=== PATIENT | male | born 1950 | race Caucasian/White ===

== ENCOUNTER 2022-04-28 17:19 | Inpatient (IN) | payer MEDICARE, MEDICAID ==
[~2022-04-28] VITALS: Ht 185.4 cm; Wt 95.3 kg
[2022-04-28] VITALS (9 sets, daily range): BP systolic 95–129; BP diastolic 69–83
[~2022-04-28 17:19] MED LIST: ETOMIDATE 2MG/ML 10ML VIAL IV ONE; SODIUM CHLORIDE 0.9% 10ML VIAL ONE; VECURONIUM BROMIDE 10 MG/VIAL IV ONE
[2022-04-28] MEDS ORDERED: SODIUM CHLORIDE 0.9% 1000ML BAG (SEPSIS BOLUS) IV ONE (17:45)
[2022-04-28] MEDS ORDERED: PIPERACILLIN/TAZ 3.375G PREMIX 50 ML IV ONE (17:45)
[2022-04-28] MEDS ORDERED: VANCOMYCIN 1G PREMIX 200 ML IV ONE (17:45)
[2022-04-28] MEDS ORDERED: ACETAMINOPHEN 650MG SUPP PR ONE (17:45)
[2022-04-28] MEDS ORDERED: ETOMIDATE 2MG/ML 10ML VIAL IV ONE (18:00)
[2022-04-28] MEDS ORDERED: MIDAZOLAM HCL 2 MG/2 ML VIAL IV ONE (18:00)
[2022-04-28] MEDS ORDERED: VECURONIUM BROMIDE 10 MG/VIAL IV ONE (18:00)
[2022-04-28] MEDS ORDERED: MIDAZOLAM HCL 50 MG in DEXTROSE 5% WATER 40 ML IV ONE (18:00)
[2022-04-28 18:04] LABS: BG BASE EXCESS -7.9 mmol/L (-2.0-2.0); BG CARBOXYHEMOGLOBIN 0.1 % (0.5-1.5); BG DEOXYHEMOGLOBIN 0.4 % (0.0-5.0); BG FRACTION INSPIRED OXYGEN 100; BG HCO3 ACT 17.9 mmol/L (22.0-26.0); BG METHEMOGLOBIN 0.7 % (0.0-1.5); BG OXYGEN SATURATION 99.6 % (92.0-98.5); BG OXYHEMOGLOBIN 98.8 % (94.0-97.0); BG PH 7.292 (7.350-7.450); BG PO2 441.9 mmHg (75.0-100.0); BG TOTAL HEMOGLOBIN 13.6 g/dL (12.0-18.0); BG VENT MODE VENT - AC
[2022-04-28 18:07] LABS: BASOPHILS % 0.6 % (0.0-2.0); EOSINOPHILS % 0.5 % (0.0-5.0); HEMATOCRIT. 40.9 % (42.0-52.0); HEMOGLOBIN. 13.9 g/dL (14.0-18.0); LYMPHOCYTES % 18.1 % (20.0-50.0); MEAN CORPUSCULAR HEMOGLOBIN 33.9 pg (28.0-32.0); MEAN CORPUSCULAR VOLUME 99.3 fL (80.0-94.0); MEAN PLATELET VOLUME 7.7 fl (7.4-10.4); MONOCYTES % 3.9 % (2.0-8.0); NEUTROPHILS % 76.9 % (40.0-76.0); PLATELET 259 x1000/uL (130-400); RED BLOOD CELL COUNT 4.12 mill/uL (4.7-6.1); RED CELL DISTRIBUTION WIDTH 14.4 % (11.6-14.6)
[2022-04-28 18:13] LABS: PROTHROMBIN TIME 10.9 sec (9.6-11.0)
[2022-04-28 18:21] LABS: CHLORIDE 117 mEq/L (98-107)
[2022-04-28] MEDS ORDERED: MIDAZOLAM HCL 100 MG in SODIUM CHLORIDE 0.9% 80 ML IV NR (18:30)
[2022-04-28 18:35] LABS: CREATINE KINASE 428 IU/L (39-308); ETHANOL BLOOD 18 mg/dL; T4 FREE 0.88 ng/dL (0.76-1.46)
[2022-04-28 18:37] LABS: CLARITY URINE CLOUDY (CLEAR); COLOR URINE DARK YELLOW (YELLOW); KETONES URINE 1+ (NEGATIVE); LEUKOCYTE ESTERASE URINE NEGATIVE (NEGATIVE); NITRITE URINE NEGATIVE (NEGATIVE); OCCULT BLOOD URINE 3+ (NEGATIVE); PROTEIN URINE 2+ (NEGATIVE); SPECIFIC GRAVITY URINE 1.021 (1.005-1.030)
[2022-04-28 18:58] LABS: *AMPHETAMINES SCREEN URINE NEGATIVE (NEGATIVE); *BARBITURATES SCREEN URINE NEGATIVE (NEGATIVE); *BENZODIAZEPINES SCREEN URINE NEGATIVE (NEGATIVE); *COCAINE SCREEN URINE NEGATIVE (NEGATIVE); CANNABINOID URINE SCREEN NEGATIVE (NEGATIVE); METHADONE URINE SCREEN NEGATIVE (NEGATIVE); OPIATES URINE SCREEN NEGATIVE (NEGATIVE); PHENCYCLIDINE URINE SCREEN NEGATIVE (NEGATIVE)
[2022-04-28] MEDS ORDERED: IPRATROPIUM BROMIDE (0.02%) 0.5MG/2.5ML NEB HHN PRN (19:15)
[2022-04-28] MEDS ORDERED: IPRATROPIUM BROMIDE (0.02%) 0.5MG/2.5ML NEB HHN SCH (19:15)
[2022-04-28] MEDS: PROPOFOL 10MG/ML 100ML 100 ML IV PRN (20:28)
[2022-04-28] MEDS ORDERED: NOREPINEPHRINE 8 MG in DEXT 5% WATER 242 ML IV PRN ×3 (20:30→23:45)
[2022-04-28] MEDS ORDERED: ACETAMINOPHEN 325MG TABLET PO PRN (20:30)
[2022-04-28] MEDS ORDERED: NA PHOS,M-B/NA PHOS,DI-BA ENEMA 118ML PR PRN (20:30)
[2022-04-28] MEDS ORDERED: DOCUSATE SODIUM 100MG CAPSULE PO PRN (20:30)
[2022-04-28] MEDS ORDERED: MAGNESIUM/ALUMINUM HYDROXIDE/SIMETHICONE 30ML UDC PO PRN (20:30)
[2022-04-28] MEDS ORDERED: ONDANSETRON HCL 4MG/2ML INJ IV PRN (20:30)
[2022-04-28] MEDS ORDERED: IPRATROPIUM/ALBUTEROL 0.5-3(2.5)MG/3ML NEB NEB PRN (20:30)
[2022-04-28] MEDS ORDERED: CLONIDINE 0.1MG TABLET PO PRN (20:30)
[2022-04-28 20:31] LABS: BG BASE EXCESS -6.9 mmol/L (-2.0-2.0); BG CARBOXYHEMOGLOBIN 0.3 % (0.5-1.5); BG DEOXYHEMOGLOBIN 0.9 % (0.0-5.0); BG FRACTION INSPIRED OXYGEN 100; BG HCO3 ACT 18.2 mmol/L (22.0-26.0); BG METHEMOGLOBIN 0.5 % (0.0-1.5); BG OXYGEN SATURATION 99.1 % (92.0-98.5); BG OXYHEMOGLOBIN 98.3 % (94.0-97.0); BG PCO2 35.2 mmHg (35.0-45.0); BG PH 7.331 (7.350-7.450); BG PO2 246.9 mmHg (75.0-100.0); BG SAMPLE SITE RIGHT RADIAL; BG TOTAL HEMOGLOBIN 13.9 g/dL (12.0-18.0); BG VENT MODE VENT - AC
[2022-04-28 21:23] LABS: T4 FREE 0.89 ng/dL (0.76-1.46)
[2022-04-28] MEDS ORDERED: PHENYLEPHRINE 100 MG in DEXT 5% WATER 240 ML IV PRN (21:30)
[2022-04-28] MEDS ORDERED: DEXT 5%/0.45% NACL 1000ML 1,000 ML IV SCH (21:30)
[2022-04-28] MEDS ORDERED: PIPERACILLIN/TAZ 3.375G PREMIX 50 ML IV SCH (23:00)
[2022-04-29] VITALS (31 sets, daily range): BP systolic 84–133; BP diastolic 60–83
[2022-04-29] MEDS ORDERED: MIDAZOLAM HCL 100 MG in DEXT 5% WATER 80 ML IV PRN (00:15)
[2022-04-29] MEDS: DEXT 5%/LACTATED RINGERS 1,000 ML IV SCH ×2 (00:23→13:04)
[2022-04-29] MEDS: PANTOPRAZOLE SODIUM 40 MG/VIAL IV SCH ×2 (00:23→09:00)
[2022-04-29] MEDS: IPRATROPIUM/ALBUTEROL 0.5-3(2.5)MG/3ML NEB HHN SCH ×5 (00:50→20:32)
[2022-04-29 01:22] LABS: CREATINE KINASE MB FRACTION 13.2 ng/mL (0.5-3.6)
[2022-04-29] MEDS ORDERED: VANCOMYCIN 750MG PREMIX 150 ML IV SCH (07:00)
[2022-04-29 11:44] LABS: BASOPHILS % 0.7 % (0.0-2.0); HEMATOCRIT. 39.9 % (42.0-52.0); HEMOGLOBIN. 13.3 g/dL (14.0-18.0); LYMPHOCYTES % 12.8 % (20.0-50.0); MEAN CORPUSCULAR HEMOGLOBIN 33.6 pg (28.0-32.0); MEAN CORPUSCULAR VOLUME 101.1 fL (80.0-94.0); MEAN PLATELET VOLUME 8.4 fl (7.4-10.4); NEUTROPHILS % 75.5 % (40.0-76.0); PLATELET 131 x1000/uL (130-400); RED BLOOD CELL COUNT 3.94 mill/uL (4.7-6.1); RED CELL DISTRIBUTION WIDTH 15.3 % (11.6-14.6)
[2022-04-29 11:52] LABS: BG BASE EXCESS -1.7 mmol/L (-2.0-2.0); BG CARBOXYHEMOGLOBIN 0.3 % (0.5-1.5); BG DEOXYHEMOGLOBIN 0.6 % (0.0-5.0); BG FRACTION INSPIRED OXYGEN 100; BG HCO3 ACT 20.7 mmol/L (22.0-26.0); BG METHEMOGLOBIN 0.4 % (0.0-1.5); BG OXYGEN SATURATION 99.4 % (92.0-98.5); BG OXYHEMOGLOBIN 98.7 % (94.0-97.0); BG PH 7.472 (7.350-7.450); BG PO2 429.7 mmHg (75.0-100.0); BG SAMPLE SITE RIGHT RADIAL; BG TOTAL HEMOGLOBIN 13.3 g/dL (12.0-18.0); BG VENT MODE VENT - AC
[2022-04-29 11:58] LABS: CHLORIDE 118 mEq/L (98-107)
[2022-04-29 12:21] LABS: CREATINE KINASE MB FRACTION 11.8 ng/mL (0.5-3.6); PHOSPHORUS 3.5 mg/dL (2.5-4.9)
[2022-04-29] MEDS: ENOXAPARIN 40MG/0.4ML SYR SUBCUT SCH (13:01)
[2022-04-29] MEDS ORDERED: PROPOFOL 10MG/ML 100ML 100 ML IV PRN (13:30)
[2022-04-29 13:51] LABS: CREATINE KINASE 6383 IU/L (39-308)
[2022-04-29] MEDS: PROPOFOL 10MG/ML 100ML 100 ML IV PRN (14:28)
[2022-04-29] MEDS: VANCOMYCIN 750MG PREMIX 150 ML IV SCH (16:42)
[2022-04-29] MEDS: PIPERACILLIN/TAZ 3.375G PREMIX 50 ML IV SCH (21:53)
[2022-04-30] VITALS (58 sets, daily range): BP systolic 89–141; BP diastolic 59–82
[2022-04-30] MEDS: IPRATROPIUM/ALBUTEROL 0.5-3(2.5)MG/3ML NEB HHN SCH ×6 (00:19→20:23)
[2022-04-30] MEDS: DEXT 5%/LACTATED RINGERS 1,000 ML IV SCH ×3 (01:33→21:39)
[2022-04-30] MEDS: PIPERACILLIN/TAZ 3.375G PREMIX 50 ML IV SCH ×2 (05:54→13:29)
[2022-04-30] MEDS: VANCOMYCIN 750MG PREMIX 150 ML IV SCH ×2 (05:55→17:40)
[2022-04-30 08:29] LABS: BG BASE EXCESS 0.4 mmol/L (-2.0-2.0); BG CARBOXYHEMOGLOBIN 0.1 % (0.5-1.5); BG FRACTION INSPIRED OXYGEN 40; BG HCO3 ACT 24.6 mmol/L (22.0-26.0); BG METHEMOGLOBIN 0.3 % (0.0-1.5); BG OXYHEMOGLOBIN 98.6 % (94.0-97.0); BG PCO2 38.4 mmHg (35.0-45.0); BG PH 7.425 (7.350-7.450); BG PO2 182.7 mmHg (75.0-100.0); BG SAMPLE SITE RIGHT RADIAL; BG TOTAL HEMOGLOBIN 13.1 g/dL (12.0-18.0); BG VENT MODE VENT - AC
[2022-04-30] MEDS: PANTOPRAZOLE SODIUM 40 MG/VIAL IV SCH (08:43)
[2022-04-30] MEDS: ENOXAPARIN 40MG/0.4ML SYR SUBCUT SCH (08:47)
[2022-04-30] MEDS: THIAMINE HCL 100MG TABLET PO SCH (11:50)
[2022-04-30] MEDS: CHLORDIAZEPOXIDE 25MG CAPSULE PO SCH ×2 (13:30→21:40)
[2022-04-30] MEDS: PIPERACILLIN/TAZOBACTAM 3.375G in DEXT 5% WATER 50ML IV SCH (21:39)
[2022-04-30] MEDS: ACETAMINOPHEN 325MG TABLET PO PRN (21:40)
[2022-04-30] MEDS: PROPOFOL 10MG/ML 100ML 100 ML IV PRN (23:05)
[2022-05-01] VITALS (96 sets, daily range): BP systolic 83–135; BP diastolic 45–81
[2022-05-01] MEDS: IPRATROPIUM/ALBUTEROL 0.5-3(2.5)MG/3ML NEB HHN SCH ×6 (00:20→20:14)
[2022-05-01] MEDS: PROPOFOL 10MG/ML 100ML 100 ML IV PRN ×6 (03:14→21:56)
[2022-05-01 03:27] LABS: CHLORIDE 115 mEq/L (98-107)
[2022-05-01] MEDS: VANCOMYCIN 750MG PREMIX 150 ML IV SCH (05:26)
[2022-05-01] MEDS: PIPERACILLIN/TAZOBACTAM 3.375G in DEXT 5% WATER 50ML IV SCH ×3 (05:26→21:21)
[2022-05-01] MEDS: DEXT 5%/LACTATED RINGERS 1,000 ML IV SCH ×3 (05:26→21:21)
[2022-05-01] MEDS: CHLORDIAZEPOXIDE 25MG CAPSULE PO SCH ×3 (05:26→21:22)
[2022-05-01 07:55] LABS: BG BASE EXCESS 1.6 mmol/L (-2.0-2.0); BG CARBOXYHEMOGLOBIN 0.3 % (0.5-1.5); BG DEOXYHEMOGLOBIN 1.6 % (0.0-5.0); BG FRACTION INSPIRED OXYGEN 30; BG HCO3 ACT 25.3 mmol/L (22.0-26.0); BG METHEMOGLOBIN 0.3 % (0.0-1.5); BG OXYGEN SATURATION 98.4 % (92.0-98.5); BG OXYHEMOGLOBIN 97.8 % (94.0-97.0); BG PCO2 36.6 mmHg (35.0-45.0); BG PH 7.458 (7.350-7.450); BG PO2 138.4 mmHg (75.0-100.0); BG SAMPLE SITE RIGHT RADIAL; BG TOTAL HEMOGLOBIN 11.1 g/dL (12.0-18.0); BG VENT MODE VENT - AC
[2022-05-01] MEDS: THIAMINE HCL 100MG TABLET PO SCH (08:49)
[2022-05-01] MEDS: ENOXAPARIN 40MG/0.4ML SYR SUBCUT SCH (08:49)
[2022-05-01] MEDS: PANTOPRAZOLE SODIUM 40 MG/VIAL IV SCH (08:49)
[2022-05-01] MEDS ORDERED: POTASSIUM CHLORIDE 20MEQ/PACKET PO NR (09:30)
[2022-05-01] MEDS: KCL 20MEQ/100ML PREMIX 100 ML IV SCH ×2 (09:56→12:15)
[2022-05-01] MEDS: VANCOMYCIN 1GM PMX (XELLIA) 200 ML IV SCH (17:17)
[2022-05-02] VITALS (85 sets, daily range): BP systolic 83–140; BP diastolic 42–81
[2022-05-02] MEDS: IPRATROPIUM/ALBUTEROL 0.5-3(2.5)MG/3ML NEB HHN SCH ×6 (00:29→20:12)
[2022-05-02] MEDS: PROPOFOL 10MG/ML 100ML 100 ML IV PRN ×2 (02:02→06:15)
[2022-05-02] MEDS: DEXT 5%/LACTATED RINGERS 1,000 ML IV SCH ×3 (03:59→19:58)
[2022-05-02] MEDS: VANCOMYCIN 1GM PMX (XELLIA) 200 ML IV SCH ×2 (03:59→17:26)
[2022-05-02 05:34] LABS: HEMATOCRIT 31.7 % (42.0-52.0); HEMOGLOBIN 10.8 g/dL (14.0-18.0); MEAN CORPUSCULAR HEMOGLOBIN 33.9 pg (28.0-32.0); MEAN CORPUSCULAR VOLUME 98.9 fL (80.0-94.0); PLATELET 107 x1000/uL (130-400); RED CELL DISTRIBUTION WIDTH 14.4 % (11.6-14.6)
[2022-05-02 05:37] LABS: CHLORIDE 113 mEq/L (98-107)
[2022-05-02] MEDS: PIPERACILLIN/TAZOBACTAM 3.375G in DEXT 5% WATER 50ML IV SCH ×3 (05:46→21:50)
[2022-05-02] MEDS: CHLORDIAZEPOXIDE 25MG CAPSULE PO SCH ×3 (05:46→21:51)
[2022-05-02 05:58] LABS: CREATINE KINASE 2195 IU/L (39-308)
[2022-05-02 08:11] LABS: BG BASE EXCESS -0.4 mmol/L (-2.0-2.0); BG CARBOXYHEMOGLOBIN 0.3 % (0.5-1.5); BG FRACTION INSPIRED OXYGEN 30; BG HCO3 ACT 22.9 mmol/L (22.0-26.0); BG METHEMOGLOBIN 0.4 % (0.0-1.5); BG OXYHEMOGLOBIN 97.3 % (94.0-97.0); BG PCO2 32.6 mmHg (35.0-45.0); BG PH 7.464 (7.350-7.450); BG PO2 126.8 mmHg (75.0-100.0); BG SAMPLE SITE RIGHT RADIAL; BG VENT MODE VENT - AC
[2022-05-02] MEDS: ENOXAPARIN 40MG/0.4ML SYR SUBCUT SCH (08:50)
[2022-05-02] MEDS: PANTOPRAZOLE SODIUM 40 MG/VIAL IV SCH (08:50)
[2022-05-02] MEDS: THIAMINE HCL 100MG TABLET PO SCH (08:50)
[2022-05-02 12:22] LABS: BG BASE EXCESS 0.8 mmol/L (-2.0-2.0); BG CARBOXYHEMOGLOBIN 0.1 % (0.5-1.5); BG DEOXYHEMOGLOBIN 4.7 % (0.0-5.0); BG HCO3 ACT 26.4 mmol/L (22.0-26.0); BG METHEMOGLOBIN 0.3 % (0.0-1.5); BG OXYGEN SATURATION 95.3 % (92.0-98.5); BG OXYHEMOGLOBIN 94.9 % (94.0-97.0); BG PH 7.376 (7.350-7.450); BG PO2 79.8 mmHg (75.0-100.0); BG SAMPLE SITE RIGHT RADIAL; BG TOTAL HEMOGLOBIN 11.9 g/dL (12.0-18.0); BG VENT MODE VENT - CPAP
[2022-05-03] VITALS (23 sets, daily range): BP systolic 86–156; BP diastolic 54–90
[2022-05-03] MEDS: IPRATROPIUM/ALBUTEROL 0.5-3(2.5)MG/3ML NEB HHN SCH ×3 (00:19→08:21)
[2022-05-03] MEDS: DEXT 5%/LACTATED RINGERS 1,000 ML IV SCH ×2 (03:58→13:10)
[2022-05-03] MEDS: VANCOMYCIN 1GM PMX (XELLIA) 200 ML IV SCH ×2 (04:02→16:24)
[2022-05-03 05:37] LABS: CHLORIDE 112 mEq/L (98-107)
[2022-05-03 05:58] LABS: CREATINE KINASE 1850 IU/L (39-308)
[2022-05-03] MEDS: CHLORDIAZEPOXIDE 25MG CAPSULE PO SCH ×3 (06:06→22:38)
[2022-05-03] MEDS: PIPERACILLIN/TAZOBACTAM 3.375G in DEXT 5% WATER 50ML IV SCH ×3 (06:06→22:38)
[2022-05-03] MEDS: ENOXAPARIN 40MG/0.4ML SYR SUBCUT SCH (09:33)
[2022-05-03] MEDS: PANTOPRAZOLE SODIUM 40 MG/VIAL IV SCH (09:33)
[2022-05-03] MEDS: THIAMINE HCL 100MG TABLET PO SCH (09:33)
[2022-05-04] VITALS (22 sets, daily range): BP systolic 108–159; BP diastolic 71–103
[2022-05-04] MEDS: DEXT 5%/LACTATED RINGERS 1,000 ML IV SCH ×2 (00:54→14:21)
[2022-05-04] MEDS: CHLORDIAZEPOXIDE 25MG CAPSULE PO SCH ×3 (05:24→22:00)
[2022-05-04 06:13] LABS: CHLORIDE 107 mEq/L (98-107)
[2022-05-04 06:31] LABS: CREATINE KINASE 1784 IU/L (39-308)
[2022-05-04] MEDS: ENOXAPARIN 40MG/0.4ML SYR SUBCUT SCH (09:00)
[2022-05-04] MEDS: THIAMINE HCL 100MG TABLET PO SCH (09:00)
[2022-05-04] MEDS: PANTOPRAZOLE SODIUM 40 MG/VIAL IV SCH (09:00)
[2022-05-04] MEDS ORDERED: PHYTONADIONE 10MG/ML AMP SUBCUT NR (17:00)
[2022-05-05] VITALS: BP 135/79
[2022-05-05 04:00] VITALS: BP 122/71
[2022-05-05] MEDS: DEXT 5%/LACTATED RINGERS 1,000 ML IV SCH ×2 (04:20→17:57)
[2022-05-05] MEDS: CHLORDIAZEPOXIDE 25MG CAPSULE PO SCH (04:20)
[2022-05-05 07:31] LABS: CHLORIDE 107 mEq/L (98-107)
[2022-05-05 07:39] LABS: CREATINE KINASE 872 IU/L (39-308)
[2022-05-05 08:00] VITALS: BP 130/70
[2022-05-05 09:40] LABS: PROTHROMBIN TIME 10.3 sec (9.6-11.0)
[2022-05-05 12:00] VITALS: BP 125/75
[2022-05-05 16:00] VITALS: BP 123/85
[2022-05-05 20:00] VITALS: BP 119/64
[2022-05-05] MEDS ORDERED: KCL 20MEQ/100ML PREMIX 100 ML IV ONE (22:00)
[2022-05-05] MEDS ORDERED: POTASSIUM CHLORIDE INJ 30 MEQ in DEXT 5% WATER 250 ML IV ONE (22:30)
[2022-05-06] VITALS: BP 130/82
[2022-05-06] MEDS ORDERED: KCL 10MEQ/50ML PREMIX 50 ML IV ONE
[2022-05-06 04:00] VITALS: BP 116/73
[2022-05-06] MEDS: DEXT 5%/LACTATED RINGERS 1,000 ML IV SCH (05:38)
[2022-05-06 06:21] LABS: CHLORIDE 108 mEq/L (98-107)
[2022-05-06 06:27] LABS: BASOPHILS % 0.8 % (0.0-2.0); EOSINOPHILS % 2.6 % (0.0-5.0); HEMATOCRIT. 30.3 % (42.0-52.0); HEMOGLOBIN. 10.7 g/dL (14.0-18.0); LYMPHOCYTES % 17.6 % (20.0-50.0); MEAN CORPUSCULAR HEMOGLOBIN 34.4 pg (28.0-32.0); MEAN CORPUSCULAR VOLUME 97.6 fL (80.0-94.0); MEAN PLATELET VOLUME 7.4 fl (7.4-10.4); MONOCYTES % 14.6 % (2.0-8.0); NEUTROPHILS % 64.4 % (40.0-76.0); PLATELET 224 x1000/uL (130-400); RED BLOOD CELL COUNT 3.11 mill/uL (4.7-6.1); RED CELL DISTRIBUTION WIDTH 13.9 % (11.6-14.6)
[2022-05-06 08:00] VITALS: BP_SYST 137; BP_SYST 138; BP_DIAS 77
[2022-05-06] MEDS: THIAMINE HCL 100MG TABLET PO SCH ×2 (11:01→11:03)
[2022-05-06] MEDS: PANTOPRAZOLE SODIUM 40 MG/VIAL IV SCH ×2 (11:01→11:03)
[2022-05-06] MEDS: ENOXAPARIN 40MG/0.4ML SYR SUBCUT SCH ×2 (11:02→11:03)
[2022-05-06 12:00] VITALS: BP 129/80
[2022-05-06 16:00] VITALS: BP_SYST 132; BP_DIAS 76; BP_DIAS 86
[2022-05-06 20:00] VITALS: BP 147/87
[2022-05-07] VITALS: BP 156/87
[2022-05-07 04:00] VITALS: BP 147/85
[2022-05-07] MEDS: DEXT 5%/LACTATED RINGERS 1,000 ML IV SCH ×2 (05:35→22:17)
[2022-05-07] MEDS: THIAMINE HCL 100MG TABLET PO SCH (10:22)
[2022-05-07] MEDS: PANTOPRAZOLE SODIUM 40 MG/VIAL IV SCH (10:23)
[2022-05-07] MEDS: ENOXAPARIN 40MG/0.4ML SYR SUBCUT SCH (10:23)
[2022-05-07 20:00] VITALS: BP 157/89
[2022-05-08] VITALS: BP 139/76
[2022-05-08 04:00] VITALS: BP 136/82
[2022-05-08 06:54] LABS: BASOPHILS % 0.7 % (0.0-2.0); EOSINOPHILS % 0.8 % (0.0-5.0); HEMATOCRIT. 30.8 % (42.0-52.0); HEMOGLOBIN. 10.7 g/dL (14.0-18.0); LYMPHOCYTES % 18.6 % (20.0-50.0); MEAN CORPUSCULAR HEMOGLOBIN 34.4 pg (28.0-32.0); MEAN PLATELET VOLUME 7.2 fl (7.4-10.4); MONOCYTES % 13.2 % (2.0-8.0); NEUTROPHILS % 66.7 % (40.0-76.0); PLATELET 277 x1000/uL (130-400); RED BLOOD CELL COUNT 3.11 mill/uL (4.7-6.1); RED CELL DISTRIBUTION WIDTH 13.8 % (11.6-14.6)
[2022-05-08 07:02] LABS: CHLORIDE 110 mEq/L (98-107)
[2022-05-08 08:00] VITALS: BP 134/84
[2022-05-08] MEDS: THIAMINE HCL 100MG TABLET PO SCH (08:56)
[2022-05-08] MEDS: ENOXAPARIN 40MG/0.4ML SYR SUBCUT SCH (08:56)
[2022-05-08] MEDS: PANTOPRAZOLE SODIUM 40 MG/VIAL IV SCH (08:56)
[2022-05-08 11:35] VITALS: BP 129/79
[2022-05-08] MEDS ORDERED: POTASSIUM CHLORIDE 20MEQ TABLET SR PO NR (13:00)
[2022-05-08] MEDS: DEXT 5%/LACTATED RINGERS 1,000 ML IV SCH (13:11)
[2022-05-08 15:38] VITALS: BP 136/80
[2022-05-08 20:00] VITALS: BP 142/96
[2022-05-09] VITALS: BP 139/83
[2022-05-09 04:10] VITALS: BP 133/78
[2022-05-09] MEDS: DEXT 5%/LACTATED RINGERS 1,000 ML IV SCH (04:30)
[2022-05-09 06:54] LABS: BASOPHILS % 0.7 % (0.0-2.0); EOSINOPHILS % 1.8 % (0.0-5.0); HEMATOCRIT. 35.5 % (42.0-52.0); HEMOGLOBIN. 12.1 g/dL (14.0-18.0); LYMPHOCYTES % 17.7 % (20.0-50.0); MEAN CORPUSCULAR HEMOGLOBIN 33.7 pg (28.0-32.0); MEAN CORPUSCULAR VOLUME 98.8 fL (80.0-94.0); NEUTROPHILS % 69.8 % (40.0-76.0); PLATELET 297 x1000/uL (130-400); RED BLOOD CELL COUNT 3.59 mill/uL (4.7-6.1)
[2022-05-09 07:03] LABS: CHLORIDE 110 mEq/L (98-107)
[2022-05-09 08:00] VITALS: BP 143/85
[2022-05-09] MEDS: ENOXAPARIN 40MG/0.4ML SYR SUBCUT SCH (08:36)
[2022-05-09] MEDS: PANTOPRAZOLE SODIUM 40 MG/VIAL IV SCH (08:36)
[2022-05-09] MEDS: THIAMINE HCL 100MG TABLET PO SCH (08:36)
[2022-05-09 11:44] VITALS: BP 145/87
[2022-05-09 16:00] VITALS: BP 136/80
[2022-05-09 20:00] VITALS: BP 118/76
[2022-05-09] MEDS: ACETAMINOPHEN 325MG TABLET PO PRN (23:16)
[2022-05-09] MEDS: GUAIFENESIN 200MG/10ML SUGAR FREE UDC PO PRN (23:16)
[2022-05-10] VITALS: BP 129/83
[2022-05-10 04:00] VITALS: BP 139/79
[2022-05-10] MEDS: GUAIFENESIN 200MG/10ML SUGAR FREE UDC PO PRN (05:12)
[2022-05-10 08:00] VITALS: BP 135/81
[2022-05-10] MEDS: PANTOPRAZOLE SODIUM 40 MG/VIAL IV SCH (08:59)
[2022-05-10] MEDS: THIAMINE HCL 100MG TABLET PO SCH (08:59)
[2022-05-10] MEDS: ENOXAPARIN 40MG/0.4ML SYR SUBCUT SCH (09:00)
[2022-05-10 12:00] VITALS: BP 109/52
[2022-05-10 16:00] VITALS: BP 128/78
[2022-05-10 20:00] VITALS: BP 119/70
[2022-05-11] VITALS: BP 125/76
[2022-05-11 04:00] VITALS: BP 133/80
[2022-05-11 08:00] VITALS: BP 103/66
[2022-05-11] MEDS: ENOXAPARIN 40MG/0.4ML SYR SUBCUT SCH ×2 (08:00→09:08)
[2022-05-11] MEDS: PANTOPRAZOLE SODIUM 40 MG/VIAL IV SCH ×2 (09:00→09:08)
[2022-05-11] MEDS: THIAMINE HCL 100MG TABLET PO SCH ×3 (09:00→09:18)
[2022-05-11 12:00] VITALS: BP 134/76
[2022-05-11 16:00] VITALS: BP 102/72
[2022-05-11 20:00] VITALS: BP 103/58
[2022-05-12] VITALS: BP 111/51
[2022-05-12 04:00] VITALS: BP 104/66
[2022-05-12 08:08] VITALS: BP 125/77
[2022-05-12] MEDS: ENOXAPARIN 40MG/0.4ML SYR SUBCUT SCH (08:22)
[2022-05-12] MEDS: PANTOPRAZOLE SODIUM 40 MG/VIAL IV SCH (08:22)
[2022-05-12 12:00] VITALS: BP 112/68
[2022-05-12 15:35] VITALS: BP 105/62
[2022-05-12 20:00] VITALS: BP 130/79
[2022-05-13] VITALS: BP 125/76
[2022-05-13 04:01] VITALS: BP 135/69
[2022-05-13 07:51] VITALS: BP 110/79
[2022-05-13] MEDS: PANTOPRAZOLE SODIUM 40 MG/VIAL IV SCH (08:05)
[2022-05-13] MEDS: ENOXAPARIN 40MG/0.4ML SYR SUBCUT SCH (08:05)
[2022-05-13] MEDS: THIAMINE HCL 100MG TABLET PO SCH (08:06)
[2022-05-13 12:00] VITALS: BP 108/71
[2022-05-13 15:47] VITALS: BP 140/74
[2022-05-13 20:00] VITALS: BP 162/76
[2022-05-14] VITALS: BP 118/80
[2022-05-14] MEDS: LORAZEPAM 1MG TABLET PO PRN (01:37)
[2022-05-14 04:00] VITALS: BP 118/66
[2022-05-14 08:00] VITALS: BP 116/66
[2022-05-14] MEDS: PANTOPRAZOLE SODIUM 40 MG/VIAL IV SCH (08:40)
[2022-05-14] MEDS: THIAMINE HCL 100MG TABLET PO SCH (08:41)
[2022-05-14] MEDS: ENOXAPARIN 40MG/0.4ML SYR SUBCUT SCH (08:41)
[2022-05-14 12:00] VITALS: BP 120/65
[2022-05-14 16:00] VITALS: BP 110/75
[2022-05-14 20:00] VITALS: BP 120/70
[2022-05-15] VITALS: BP 114/60
[2022-05-15 04:00] VITALS: BP 103/69
[2022-05-15 08:00] VITALS: BP 108/64
[2022-05-15 08:28] LABS: CHLORIDE 104 mEq/L (98-107)
[2022-05-15 08:29] LABS: HEMATOCRIT. 36.9 % (42.0-52.0); HEMOGLOBIN. 12.4 g/dL (14.0-18.0); MEAN CORPUSCULAR HEMOGLOBIN 33.1 pg (28.0-32.0); MEAN CORPUSCULAR VOLUME 98.8 fL (80.0-94.0); MEAN PLATELET VOLUME 7.1 fl (7.4-10.4); PLATELET 324 x1000/uL (130-400); RED BLOOD CELL COUNT 3.73 mill/uL (4.7-6.1); RED CELL DISTRIBUTION WIDTH 13.9 % (11.6-14.6)
[2022-05-15] MEDS: ENOXAPARIN 40MG/0.4ML SYR SUBCUT SCH (09:00)
[2022-05-15] MEDS: PANTOPRAZOLE SODIUM 40 MG/VIAL IV SCH (09:00)
[2022-05-15] MEDS: THIAMINE HCL 100MG TABLET PO SCH (09:00)
[2022-05-15 11:50] LABS: PLATELET ESTIMATE NORMAL
[2022-05-15 12:00] VITALS: BP 100/62
[2022-05-15 16:00] VITALS: BP 114/64
[2022-05-15 20:00] VITALS: BP 96/66
[2022-05-16] VITALS: BP 112/65
[2022-05-16 04:00] VITALS: BP 92/60
[2022-05-16 08:00] VITALS: BP 103/64
[2022-05-16] MEDS: PANTOPRAZOLE SODIUM 40 MG/VIAL IV SCH (08:53)
[2022-05-16] MEDS: THIAMINE HCL 100MG TABLET PO SCH (08:53)
[2022-05-16] MEDS: ENOXAPARIN 40MG/0.4ML SYR SUBCUT SCH (08:54)
[2022-05-16 12:00] VITALS: BP 111/69
[2022-05-16 16:00] VITALS: BP 100/63
[2022-05-16 20:00] VITALS: BP 125/71
[2022-05-16] MEDS: LORAZEPAM 1MG TABLET PO PRN (22:45)
[2022-05-17] VITALS (7 sets, daily range): BP systolic 93–130; BP diastolic 58–80
[2022-05-17] MEDS: PANTOPRAZOLE SODIUM 40 MG/VIAL IV SCH (09:37)
[2022-05-17] MEDS: THIAMINE HCL 100MG TABLET PO SCH (09:37)
[2022-05-17] MEDS: ENOXAPARIN 40MG/0.4ML SYR SUBCUT SCH (09:38)
[2022-05-18] VITALS (7 sets, daily range): BP systolic 109–118; BP diastolic 61–73
[2022-05-18] MEDS: THIAMINE HCL 100MG TABLET PO SCH (10:24)
[2022-05-18] MEDS: ENOXAPARIN 40MG/0.4ML SYR SUBCUT SCH (10:24)
[2022-05-18] MEDS: PANTOPRAZOLE SODIUM 40 MG/VIAL IV SCH ×2 (10:24→10:39)
[2022-05-18] MEDS: DOCUSATE SODIUM 100MG CAPSULE PO SCH ×2 (12:38→17:00)
[2022-05-19 04:00] VITALS: BP 104/70
[2022-05-19 08:00] VITALS: BP 117/68
[2022-05-19] MEDS: PANTOPRAZOLE SODIUM 40 MG/VIAL IV SCH (09:20)
[2022-05-19] MEDS: ENOXAPARIN 40MG/0.4ML SYR SUBCUT SCH (09:20)
[2022-05-19] MEDS: THIAMINE HCL 100MG TABLET PO SCH (09:20)
[2022-05-19 12:00] VITALS: BP 97/58
[2022-05-19 16:00] VITALS: BP 108/78
[2022-05-19 20:00] VITALS: BP 109/69
[2022-05-20] VITALS: BP 113/69
[2022-05-20 04:00] VITALS: BP 123/68
[2022-05-20 06:32] LABS: BASOPHILS % 0.7 % (0.0-2.0); EOSINOPHILS % 1.6 % (0.0-5.0); HEMATOCRIT. 35.4 % (42.0-52.0); HEMOGLOBIN. 12.2 g/dL (14.0-18.0); LYMPHOCYTES % 22.4 % (20.0-50.0); MEAN CORPUSCULAR HEMOGLOBIN 33.5 pg (28.0-32.0); MEAN CORPUSCULAR VOLUME 97.1 fL (80.0-94.0); MEAN PLATELET VOLUME 7.5 fl (7.4-10.4); MONOCYTES % 10.7 % (2.0-8.0); NEUTROPHILS % 64.6 % (40.0-76.0); PLATELET 266 x1000/uL (130-400); RED BLOOD CELL COUNT 3.64 mill/uL (4.7-6.1); RED CELL DISTRIBUTION WIDTH 13.4 % (11.6-14.6)
[2022-05-20 06:48] LABS: CHLORIDE 106 mEq/L (98-107)
[2022-05-20 08:00] VITALS: BP 98/68
[2022-05-20] MEDS: ENOXAPARIN 40MG/0.4ML SYR SUBCUT SCH (09:10)
[2022-05-20] MEDS: THIAMINE HCL 100MG TABLET PO SCH (09:10)
[2022-05-20] MEDS: PANTOPRAZOLE SODIUM 40 MG/VIAL IV SCH ×2 (09:12→21:20)
[2022-05-20 12:00] VITALS: BP 105/63
[2022-05-20 16:00] VITALS: BP 106/65
[2022-05-20 18:08] LABS: BG BASE EXCESS -0.3 mmol/L (-2.0-2.0); BG CARBOXYHEMOGLOBIN 0.1 % (0.5-1.5); BG DEOXYHEMOGLOBIN 4.3 % (0.0-5.0); BG FRACTION INSPIRED OXYGEN 21; BG HCO3 ACT 23.4 mmol/L (22.0-26.0); BG METHEMOGLOBIN 0.3 % (0.0-1.5); BG OXYGEN SATURATION 95.7 % (92.0-98.5); BG OXYHEMOGLOBIN 95.3 % (94.0-97.0); BG PCO2 35.1 mmHg (35.0-45.0); BG PH 7.441 (7.350-7.450); BG PO2 82.1 mmHg (75.0-100.0); BG SAMPLE SITE LEFT BRACHIAL; BG TOTAL HEMOGLOBIN 12.8 g/dL (12.0-18.0); BG VENT MODE ROOM AIR
[2022-05-20] MEDS ORDERED: BISACODYL 10MG SUPP PR NR (19:38)
[2022-05-20 21:30] VITALS: BP 98/67
[2022-05-21] VITALS: BP 103/65
[2022-05-21] MEDS: METOCLOPRAMIDE HCL 10MG/2ML VIAL IV SCH ×4 (05:43→17:32)
[2022-05-21 06:48] LABS: CHLORIDE 106 mEq/L (98-107)
[2022-05-21 07:13] LABS: HEMATOCRIT 34.2 % (42.0-52.0); HEMOGLOBIN 11.8 g/dL (14.0-18.0); MEAN CORPUSCULAR HEMOGLOBIN 33.5 pg (28.0-32.0); MEAN CORPUSCULAR VOLUME 97.4 fL (80.0-94.0); PLATELET 257 x1000/uL (130-400); RED BLOOD CELL COUNT 3.52 mill/uL (4.7-6.1); RED CELL DISTRIBUTION WIDTH 13.6 % (11.6-14.6)
[2022-05-21 08:00] VITALS: BP 98/64
[2022-05-21] MEDS: ENOXAPARIN 40MG/0.4ML SYR SUBCUT SCH (08:32)
[2022-05-21] MEDS: THIAMINE HCL 100MG TABLET PO SCH (08:33)
[2022-05-21 12:00] VITALS: BP 115/71
[2022-05-21 16:00] VITALS: BP 101/67
[2022-05-21 20:00] VITALS: BP 105/66
[2022-05-22] VITALS: BP 103/63
[2022-05-22 04:00] VITALS: BP 113/72
[2022-05-22] MEDS: METOCLOPRAMIDE HCL 10MG/2ML VIAL IV SCH ×4 (06:00→18:00)
[2022-05-22 08:00] VITALS: BP 99/53
[2022-05-22] MEDS: ENOXAPARIN 40MG/0.4ML SYR SUBCUT SCH (08:53)
[2022-05-22] MEDS: PANTOPRAZOLE SODIUM 40 MG/VIAL IV SCH (08:53)
[2022-05-22] MEDS: THIAMINE HCL 100MG TABLET PO SCH (08:53)
[2022-05-22 12:00] VITALS: BP 95/47
[2022-05-22] MEDS ORDERED: THIA100T72 PO (12:16)
[2022-05-22 16:00] VITALS: BP 94/58
[2022-05-22 20:00] VITALS: BP 99/58
[2022-05-23] VITALS (7 sets, daily range): BP systolic 65–103; BP diastolic 48–61
[2022-05-23] MEDS: METOCLOPRAMIDE HCL 10MG/2ML VIAL IV SCH ×5 (06:00→23:29)
[2022-05-23] MEDS: THIAMINE HCL 100MG TABLET PO SCH (08:53)
[2022-05-23] MEDS: PANTOPRAZOLE SODIUM 40 MG/VIAL IV SCH (08:53)
[2022-05-23] MEDS: ENOXAPARIN 40MG/0.4ML SYR SUBCUT SCH (08:53)
[2022-05-24] VITALS: BP 92/49
[2022-05-24 04:00] VITALS: BP 108/72
[2022-05-24] MEDS: METOCLOPRAMIDE HCL 10MG/2ML VIAL IV SCH ×3 (05:49→17:38)
[2022-05-24 08:00] VITALS: BP 111/70
[2022-05-24] MEDS: ENOXAPARIN 40MG/0.4ML SYR SUBCUT SCH (08:09)
[2022-05-24] MEDS: THIAMINE HCL 100MG TABLET PO SCH (08:09)
[2022-05-24] MEDS: PANTOPRAZOLE SODIUM 40 MG/VIAL IV SCH (08:09)
[2022-05-24 12:00] VITALS: BP 113/68
[2022-05-24 16:00] VITALS: BP 125/83
[2022-05-24 20:00] VITALS: BP 105/60
[2022-05-25] VITALS (7 sets, daily range): BP systolic 90–122; BP diastolic 60–67
[2022-05-25] MEDS: METOCLOPRAMIDE HCL 10MG/2ML VIAL IV SCH ×4 (05:08→18:00)
[2022-05-25] MEDS: ENOXAPARIN 40MG/0.4ML SYR SUBCUT SCH (08:00)
[2022-05-25] MEDS: PANTOPRAZOLE SODIUM 40 MG/VIAL IV SCH (09:19)
[2022-05-25] MEDS: THIAMINE HCL 100MG TABLET PO SCH (09:19)
[2022-05-26] VITALS: BP 105/62
[2022-05-26] MEDS: METOCLOPRAMIDE HCL 10MG/2ML VIAL IV SCH ×3 (05:41→12:00)
[2022-05-26 08:00] VITALS: BP 106/68
[2022-05-26] MEDS: ENOXAPARIN 40MG/0.4ML SYR SUBCUT SCH (08:00)
[2022-05-26] MEDS: PANTOPRAZOLE SODIUM 40 MG/VIAL IV SCH (09:00)
[2022-05-26] MEDS: THIAMINE HCL 100MG TABLET PO SCH (09:22)
[2022-05-26 12:00] VITALS: BP 100/66
== END 2022-05-26 15:40 | disposition home or self-care (01) | DRG 871 ==
LOC: ER 17:19 → EDBEDREQ 17:37 → INTOOBSV 18:47 → CVICU 18:47 → OBSVTOIN 18:47 → EDBEDREQTM 19:02 → EDBEDREQ 19:02 → ENRESERV 20:51 → 8WST 05-04 21:31 → 7WST 05-20 23:10
PROVIDERS: ADMIT Internal Medicine; ATTEND Internal Medicine
PROC: 5A1945Z Respiratory Ventilation, 24-96 Consecutive Hours (ICD-10-PCS; principal; 2022-04-28)
PROC: 0BH17EZ Insertion of Endotracheal Airway into Trachea, Via Natural or Artificial Opening (ICD-10-PCS; 2022-04-28)
PROC: 02HV33Z Insertion of Infusion Device into Superior Vena Cava, Percutaneous Approach (ICD-10-PCS; 2022-05-01)
PROC: B548ZZA Ultrasonography of Superior Vena Cava, Guidance (ICD-10-PCS; 2022-05-01)
DX: A41.9 Sepsis, unspecified organism (principal); G93.41 Metabolic encephalopathy; J96.01 Acute respiratory failure with hypoxia; J69.0 Pneumonitis due to inhalation of food and vomit; U07.1 COVID-19; I21.4 Non-ST elevation (NSTEMI) myocardial infarction; E87.0 Hyperosmolality and hypernatremia; M62.82 Rhabdomyolysis; E87.2 Acidosis; K56.7 Ileus, unspecified; F10.139 Alcohol abuse with withdrawal, unspecified; Z20.822 Contact with and (suspected) exposure to COVID-19; D63.8 Anemia in other chronic diseases classified elsewhere; R65.20 Severe sepsis without septic shock; E78.5 Hyperlipidemia, unspecified; R31.9 Hematuria, unspecified; R74.01 Elevation of levels of liver transaminase levels; F10.129 Alcohol abuse with intoxication, unspecified; S40.221A Blister (nonthermal) of right shoulder, initial encounter; S70.221A Blister (nonthermal), right hip, initial encounter; S30.820A Blister (nonthermal) of lower back and pelvis, initial encounter; X58.XXXA Exposure to other specified factors, initial encounter; N32.89 Other specified disorders of bladder; Y90.0 Blood alcohol level of less than 20 mg/100 ml; Y93.89 Activity, other specified; Y92.89 Other specified places as the place of occurrence of the external cause; Y99.8 Other external cause status; Z59.00 Homelessness unspecified; Z78.1 Physical restraint status
CPT/HCPCS: 31500; 36415; 36573; 36600; 70551; 71045; 74018; 74177; 80048; 80053; 80061; 80202; 80305; 80320; 81003; 82375; 82550; 82553; 82607; 82746; 82805; 82962; 83036; 83540; 83550; 83605; 83735; 83880; 84100; 84145; 84439; 84443; 84478; 84484; 85025; 85027; 87070; 87426; 92610; 93005; 93306; 93970; 94002; 94003; 94640; 97110; 97116; 97162; 99291; C1725; C9113; C9803; G0378; J1650; J2250; J2405; J2543; J2704; J2765; J3370; J3480; J3490; J7030; J7050; J7060; G0480